=== PATIENT | female | born 1960 | race Caucasian/White ===

== ENCOUNTER 2016-05-08 05:32 | Day surgery (SDC) | payer OTHER ==
[2016-05-07 11:23] LABS: HEMATOCRIT 42.3 % (36.0-48.0); HEMOGLOBIN 13.5 g/dL (12-16); MCH 27.4 pg (26.0-34.0); MCHC 31.9 g/dL (31.0-37.0); MEAN PLATELET VOLUME 10.7 fL (7.4-10.4); RBC 4.92 10x6/uL (4.00-5.40); RDW 14.4 % (11.5-14.5); WBC 7.1 10x3/uL (4.8-10.8)
[~2016-05-08] VITALS: Ht 165.1 cm; Wt 77.1 kg
[~2016-05-08 05:32] MED LIST: PROAIR HFA8.5 GM INH; TRAZODONE HCL150 MG PO; ZANAFLEX2 M1 PO; ZOLOFT100 MG PO
[2016-05-08 12:21] VITALS: BP 133/77; Ht 165.1 cm; Wt 77.1 kg
--- NOTE | 2016-05-08 17:35 | NUR ---
1645 IV DC WITH CATHER TIP INTACT
--- NOTE | 2016-06-09 13:17 | OP ---
PATIENT NAME: SUMI CADENA MEDICAL RECORD: [id number] :64 LOCATION:[facility] ADMISSION DATE: SURGEON: MAGDI FARAH DATE OF OPERATION: 05/08/2016 SURGEON: Magdi Farah DPM. PREOPERATIVE DIAGNOSIS: Mass, left foot. POSTOPERATIVE DIAGNOSIS: Ganglionic cyst, left foot. PROCEDURE: Excision of ganglionic cyst, left foot. ANESTHESIA: Local with monitored anesthesia care. HEMOSTASIS: Maintained on the field. ESTIMATED BLOOD LOSS: Minimal. MATERIALS: 3-0 Vicryl and 4-0 nylon. INJECTABLES: A 10 cc 0.5% bupivacaine with epinephrine. INDICATIONS: The patient has a longstanding history of pain associated with the mass on the plantar surface of the left foot. An MRI was obtained, which reveled probable ganglionic cyst, left foot. I have discussed with her the proposed procedure, risks and benefits were reviewed. Complications were discussed. Her questions were answered. She was consented for excision of mass, left foot. DESCRIPTION OF PROCEDURE: The patient was brought in the operating room and placed in the operating table in supine position. A timeout was called with Dr. Farah, who identified the patient, the surgical site, and the surgery to be performed. Once appropriate anesthesia was obtained, the foot was prepped and draped in the usual aseptic manner. Attention was directed to the plantar surface of the left foot where a 4-cm linear incision was made directly beneath the first metatarsal head. The incision was carried deep to soft tissue with care being taken to retract any vital neurovascular structures. All bleeders were cauterized along the way. Through this incision, a mass was noted. Utilizing both blunt and sharp dissection, the margins of the mass were all dissected free and the mass was passed from the field. The mass appeared to be a ganglionic cyst. The surgical site was then irrigated with copious amounts of normal sterile saline via bulb syringe. The surgical site was then investigated for any remaining pathological tissue and none was noted. The deep fascial layer was then reapproximated and coapted utilizing 3-0 Vicryl. The subQ was then reapproximated and coapted utilizing 3-0 Vicryl. The skin was then reapproximated and coapted utilizing 4-0 nylon. The foot was dressed with Xeroform, 4 x 4's, Kerlix, and Jah bandage. The patient tolerated the procedure and anesthesia well. She left the operating room with vital signs stable and capillary refill time intact. OPERATIVE REPORT [id number] SUMI CADENA The patient was discharged home with instructions to ice and elevate the left foot. She will be dispensed a postop shoe, as well as crutches to maintain on nonweightbearing status on the left foot. She has my cell phone number for any afterhours difficulties and there were no complications at this procedure. She will follow up with me next week. TRANSINT:[id number] Voice Confirmation ID: [id number] DOCUMENT ID: [id number] MAGDI FARAH at 1317 CC: [id number] DICTATION DATE: 05/08/16 1630 SENIOR SYSTEMS DEVELOPER: 05/09/16 0022 [facility] 05/08/[address] [id number]
== END 2016-05-08 17:00 | disposition home or self-care (01) ==
LOC: D.OPS 05:32 → D.PAN 13:30 → D.OPS 17:00
PROVIDERS: Anesthesiology
DX: M67.472 Ganglion, left ankle and foot (principal)